=== PATIENT | male | born 1980 | race Caucasian/White ===

== ENCOUNTER 2020-03-27 09:03 | Emergency (ER) | payer OTHER ==
--- NOTE | 2020-03-27 09:58 | EDM.PDOC ---
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 he should come to ED pain is nonspecific, may increase with activity, lifted logs this AM which did not seem to affect it no n/v smoked in past, chews tobacco, no THC, no street drugs, drank 6 beers yesterday at [employer] last 3d, worked outside felt more tired than usual, took 3 naps 2d ago which is unusal for him Chest Pain Score (Numeric/FACES): 5 - Related Data Allergies Allergy/AdvReac Type Severity Reaction Status Date / Time No Known Allergies Allergy Verified 09/10/13 22:24 Home Meds: Home Meds Nitroglycerin [Nitrostat] 0.4 mg SL ASDIRECTED PRN #25 tab.subl #25 Samples 09/10/13 [Rx] Meloxicam 15 mg PO DAILY #14 tablet 03/27/20 [Rx] Past Medical History - Past Health History Medical/Surgical History: Denies Medical/Surgical History Cardiovascular History: Reports: Angina - Past Surgical History Cardiovascular Surgical History: Reports: None Musculoskeletal Surgical History: Reports: Other (See Below) Other Musculoskeletal Surgeries/Procedures:: Back surgery in 2013. Social & Family History - Family History Family Medical History: Noncontributory - Tobacco Use Smoking Status *Q: Never Smoker - Caffeine Use Caffeine Use: Reports: Soda - Alcohol Use Days Per Week of Alcohol Use: 2 Number of Drinks Per Day: 6 Total Drinks Per Week: 12 - Recreational Drug Use Recreational Drug Use: No ED ROS GENERAL - Review of Systems Review Of Systems: See Below Constitutional: Reports: No Symptoms HEENT: Reports: No Symptoms Respiratory: Reports: No Symptoms Cardiovascular: Reports: Chest Pain Endocrine: Reports: No Symptoms GI/Abdominal: Reports: No Symptoms : Reports: No Symptoms Musculoskeletal: Reports: No Symptoms Skin: Reports: No Symptoms Neurological: Reports: No Symptoms Psychiatric: Reports: No Symptoms Hematologic/Lymphatic: Reports: No Symptoms Immunologic: Reports: No Symptoms ED EXAM, GENERAL - Physical Exam Exam: See Below Exam Limited By: No Limitations General Appearance: Alert, WD/WN, No Apparent Distress, Other (anxious) Eye Exam: Bilateral Eye: EOMI, PERRL Ears: Hearing Grossly Normal Nose: Normal Inspection, Normal Mucosa, No Blood Throat/Mouth: Normal Inspection, Normal Lips, Normal Voice, No Airway Compromise Head: Atraumatic, Normocephalic Neck: Normal Inspection, Supple, Non-Tender, Full Range of Motion. No: Lymphadenopathy (R), Lymphadenopathy (L) Respiratory/Chest: No Respiratory Distress, Lungs Clear, Normal Breath Sounds, No Accessory Muscle Use, Chest Non-Tender Cardiovascular: Normal Peripheral Pulses, Regular Rate, Rhythm, No Edema, No Gallop, No JVD, No Murmur, No Rub GI/Abdominal: Soft, Non-Tender, No Distention Back Exam: Normal Inspection, Full Range of Motion, NT Extremities: Normal Inspection, Normal Range of Motion, Non-Tender, No Pedal Edema Neurological: Alert, Oriented, CN II-XII Intact, Normal Cognition, No Motor/Sensory Deficits Psychiatric: Normal Affect, Normal Mood Skin Exam: Warm, Dry, Intact, Normal Color, No Rash Lymphatic: No Adenopathy Course - Vital Signs Last Recorded V/S: Last Vital Signs Temp 36.5 C 03/27/20 09:05 Pulse 60 03/27/20 09:05 Resp 14 03/27/20 09:05 BP 180/87 H 03/27/20 09:05 Pulse Ox 100 03/27/20 09:05 - Orders/Labs/Meds Labs: Laboratory Tests 03/27/20 03/27/20 03/27/20 Range/Units 09:55 09:55 09:55 WBC 5.5 (4.5-12.0) X10-3/uL RBC 4.97 (4.30-5.75) x10(6)uL Hgb 15.3 (13.5-17.8) g/dL Hct 45.7 (30.0-51.3) % MCV 92.0 (80-96) fL MCH 30.7 (27.7-33.6) pg MCHC 33.4 (32.2-35.4) g/dL RDW 12.6 (11.5-15.5) % Plt Count 233 (125-369) X10(3)uL MPV 8.0 (7.4-10.4) fL Neut % (Auto) 62.6 (46-82) % Lymph % (Auto) 26.5 (13-37) % Garrett % (Auto) 5.4 (4-12) % Eos % (Auto) 5 (1.0-5.0) % Baso % (Auto) 1 (0-2) % Neut # (Auto) 3.4 (1.6-8.3) # Lymph # (Auto) 1.4 (0.6-5.0) # Garrett # (Auto) 0.3 (0.0-1.3) # Eos # (Auto) 0.2 (0.0-0.8) # Baso # (Auto) 0.1 (0.0-0.2) # D-Dimer, Quantitative < 0.19 (0.0-0.59) mg/LFEU Sodium 135 (135-145) mmol/L Potassium 4.5 (3.5-5.3) mmol/L Chloride 101 (100-110) mmol/L Carbon Dioxide 27 (21-32) mmol/L BUN 12 (7-18) mg/dL Creatinine 1.2 (0.70-1.30) mg/dL Est Cr Clr Drug Dosing 88.02 mL/min Estimated GFR (MDRD) > 60 (>60) BUN/Creatinine Ratio 10.0 (9-20) Glucose 107 (80-116) mg/dL Calcium 9.2 (8.6-10.2) mg/dL Total Bilirubin 0.6 (0.1-1.3) mg/dL AST 45 H (5-25) IU/L ALT 83 H (12-36) U/L Alkaline Phosphatase 50 L (56-112) IU/L Troponin I (4.0-60.3) pg/mL C-Reactive Protein (0.5-0.9) mg/dL NT-Pro-B Natriuret Pep (<=125) pg/mL Total Protein 7.5 (6.0-8.0) g/dL Albumin 4.2 (3.5-5.2) g/dL Globulin 3.3 g/dL Albumin/Globulin Ratio 1.3 TSH, Ultra Sensitive (0.36-3.74) IU/mL Urine Color (YELLOW) Urine Appearance (CLEAR) Urine pH (5.0-6.5) Ur Specific [place] (1.010-1.025) Urine Protein (NEGATIVE) mg/dL Urine Glucose (UA) (NORMAL) mg/dL Urine Ketones (NEGATIVE) mg/dL Urine Occult Blood (NEGATIVE) Urine Nitrite (NEGATIVE) Urine Bilirubin (NEGATIVE) Urine Urobilinogen (NEGATIVE) mg/dL Ur Leukocyte Esterase (NEGATIVE) Urine WBC (0-5) Ur Squamous Epith Cells (NS,R,O) Urine Bacteria (NS) 03/27/20 03/27/20 03/27/20 Range/Units 09:55 09:55 11:35 WBC (4.5-12.0) X10-3/uL RBC (4.30-5.75) x10(6)uL Hgb (13.5-17.8) g/dL Hct (30.0-51.3) % MCV (80-96) fL MCH (27.7-33.6) pg MCHC (32.2-35.4) g/dL RDW (11.5-15.5) % Plt Count (125-369) X10(3)uL MPV (7.4-10.4) fL Neut % (Auto) (46-82) % Lymph % (Auto) (13-37) % Garrett % (Auto) (4-12) % Eos % (Auto) (1.0-5.0) % Baso % (Auto) (0-2) % Neut # (Auto) (1.6-8.3) # Lymph # (Auto) (0.6-5.0) # Garrett # (Auto) (0.0-1.3) # Eos # (Auto) (0.0-0.8) # Baso # (Auto) (0.0-0.2) # D-Dimer, Quantitative (0.0-0.59) mg/LFEU Sodium (135-145) mmol/L Potassium (3.5-5.3) mmol/L Chloride (100-110) mmol/L Carbon Dioxide (21-32) mmol/L BUN (7-18) mg/dL Creatinine (0.70-1.30) mg/dL Est Cr Clr Drug Dosing mL/min Estimated GFR (MDRD) (>60) BUN/Creatinine Ratio (9-20) Glucose (80-116) mg/dL Calcium (8.6-10.2) mg/dL Total Bilirubin (0.1-1.3) mg/dL AST (5-25) IU/L ALT (12-36) U/L Alkaline Phosphatase (56-112) IU/L Troponin I 5.4 (4.0-60.3) pg/mL C-Reactive Protein 0.7 (0.5-0.9) mg/dL NT-Pro-B Natriuret Pep 11 (<=125) pg/mL Total Protein (6.0-8.0) g/dL Albumin (3.5-5.2) g/dL Globulin g/dL Albumin/Globulin Ratio TSH, Ultra Sensitive 3.34 (0.36-3.74) IU/mL Urine Color Yellow (YELLOW) Urine Appearance Clear (CLEAR) Urine pH 5.0 (5.0-6.5) Ur Specific [place] 1.020 (1.010-1.025) Urine Protein Negative (NEGATIVE) mg/dL Urine Glucose (UA) Normal (NORMAL) mg/dL Urine Ketones Negative (NEGATIVE) mg/dL Urine Occult Blood Negative (NEGATIVE) Urine Nitrite Negative (NEGATIVE) Urine Bilirubin Negative (NEGATIVE) Urine Urobilinogen Normal (NEGATIVE) mg/dL Ur Leukocyte Esterase Negative (NEGATIVE) Urine WBC 0-5 (0-5) Ur Squamous Epith Cells Occasional (NS,R,O) Urine Bacteria Occasional H (NS) - Re-Assessments/Exams Free Text/Narrative Re-Assessment/Exam: 03/27/20 12:26 repeat BP wnl, pt has rested comfortably here, CP with EKG is neg, labs all neg, CP has resolved pt sxs have been chronic and daily and long duration and not related to activity, no good hx for angina, CP is atypical and appears musculoskeletal pt also with c/w inc'd fatigue of unclear etiology, pt offered COVID testing and declined pt understands need for close f/u and possible additional testing including EST and cardiology Departure - Departure Time of Disposition: 12:24 Disposition: Home, Self-Care 01 Condition: Good Clinical Impression: Left-sided chest wall pain, Elevated liver function tests Prescriptions: Meloxicam 15 mg PO DAILY #14 tablet Instructions: Nonspecific Chest Pain, Adult, Liver Function Tests Referrals: PCP,None [Ordering Only Provider] - Forms: ED Department Discharge Additional Instructions: For pain and inflammation, take meloxicam 15 mg 1 tab daily for 2 weeks. For pain and inflammation, take acetaminophen 500 mg 2 tabs 2 times a day for 2 weeks. Use moist heat in the shower or tub for 10 minutes several times a day as needed. You also have mild elevation of your liver enzymes which is new compared with 6 years ago and is likely related to alcohol. You will want to discuss this further with your physician. See your physician in 2-3 days. Return to ED if you are feeling worse. Sepsis Event Note (ED) - Evaluation Sepsis Screening Result: No Definite Risk - Focused Exam Vital Signs: Vital Signs Temp Pulse Resp BP Pulse Ox 03/27/20 09:05 36.5 C 60 14 180/87 H 100
--- NOTE | 2020-03-27 10:48 | CR ---
INDICATION: Chest pain x1 month, midline and to the left. CHEST TWO VIEWS: PA and two lateral views of the chest were obtained 03/27/20 and compared with 09/10/13. There is a relatively poor inspiration which emphasizes the heart. The heart could be slightly enlarged, but may simply be at the upper limits of normal. Mediastinum and bony thorax are unremarkable. Overlying EKG leads are noted. Allowing for the poor inspiration, markings are similar to the previous study with no definite active infiltrate or effusion. IMPRESSION: 1. No definite acute process. 2. Possibility of mild increase in heart size cannot be entirely excluded without a full inspiration PA view of the chest. MTDD
== END 2020-03-27 13:16 | disposition home or self-care (01) ==
LOC: FB.ED 09:03
DX: R07.89 Other chest pain (principal); R79.89 Other specified abnormal findings of blood chemistry
CPT/HCPCS: 36415; 71046; 80053; 81001; 83880; 84443; 84484; 85025; 85379; 86140; 99285-25